=== PATIENT | male | born 2000 | race Two or more races ===

== ENCOUNTER 2021-09-22 13:02 | Emergency (ER) | payer OTHER ==
[~2021-09-22] VITALS: Ht 175.3 cm; Wt 65.8 kg
[2021-09-22 13:19] VITALS: BP 118/75
--- NOTE | 2021-09-22 13:25 | NUR ---
CALLED [facility], CONFIRMED REPORT HAS BEEN MADE. INCIDENT #[id number]
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
[2021-09-22 15:35] VITALS: BP 118/75
--- NOTE | 2021-09-22 15:35 | NUR ---
Patient discharged with v/s stable. Written and verbal after care instructions given and explained. Patient verbalized understanding. Ambulatory with steady gait. All questions addressed prior to discharge. Advised to follow up with PMD.
== END 2021-09-22 15:35 | disposition home or self-care (01) ==
LOC: MED 13:02
DX: S09.90XA Unspecified injury of head, initial encounter (principal); Y04.2XXA Assault by strike against or bumped into by another person, initial encounter; Y93.89 Activity, other specified; Y92.89 Other specified places as the place of occurrence of the external cause; Y99.8 Other external cause status
CPT/HCPCS: 70450; 99284

== ENCOUNTER 2023-03-16 16:55 | Emergency (ER) | payer OTHER ==
[~2023-03-16] VITALS: Ht 172.7 cm; Wt 77.1 kg
[2023-03-16 17:20] VITALS: BP 133/72; PULSE 89; RESP 18; TEMP 97; O2SAT 98
[2023-03-16] MEDS ORDERED: IBUPROFEN 600 MG TAB PO ONE (18:15)
[2023-03-16] MEDS ORDERED: IBUP-2213 PO (21:02)
== END 2023-03-16 21:20 | disposition home or self-care (01) ==
LOC: MED 16:55
DX: S60.011A Contusion of right thumb without damage to nail, initial encounter (principal); R03.0 Elevated blood-pressure reading, without diagnosis of hypertension; Z79.1 Long term (current) use of non-steroidal anti-inflammatories (NSAID); W22.8XXA Striking against or struck by other objects, initial encounter; Y92.89 Other specified places as the place of occurrence of the external cause; Y93.89 Activity, other specified; Y99.8 Other external cause status
CPT/HCPCS: 73140; 99283